=== PATIENT | female | born 1940 | race Caucasian/White ===

== ENCOUNTER 2017-09-25 14:04 | Emergency (ER) | payer MEDICARE, OTHER ==
[2017-09-25] MEDS ORDERED: Cephalexin 500 MG CAP ONE (15:09)
[2017-09-25] MEDS ORDERED: Adacel (T-DAP) 0.5 ML VIAL ONE (15:09)
[2017-09-25] MEDS ORDERED: Naproxen 500 MG TAB ONE (15:09)
[2017-09-25] MEDS ORDERED: Triple Antibiotic Oint 1 GM Packet ONE (15:09)
== END 2017-09-25 15:40 | disposition home or self-care (01) ==
LOC: MADERS 14:04
DX: T22.111A Burn of first degree of right forearm, initial encounter (principal); T23.162A Burn of first degree of back of left hand, initial encounter; T31.0 Burns involving less than 10% of body surface; Z79.899 Other long term (current) drug therapy; X10.1XXA Contact with hot food, initial encounter
CPT/HCPCS: 90715; 99283